=== PATIENT | male | born 1940 | race African-American/Black ===

== ENCOUNTER 2018-08-29 11:41 | Emergency (ER) | payer MEDICARE, BC ==
[~2018-08-29] VITALS: Ht 172.7 cm; Wt 82.0 kg
[~2018-08-29 11:41] MED LIST: ACET1TAB14 PO; HYDR-523 PO; LISI-196 PO; LOV40 SQ; TAMS-11 PO
[2018-08-29 12:09] VITALS: BP 133/79
[2018-08-29] MEDS ORDERED: GABAPENTIN (12:20)
== END 2018-08-29 13:50 | disposition left against medical advice (07) ==
LOC: ER 11:41
DX: R07.81 Pleurodynia (principal); Z53.21 Procedure and treatment not carried out due to patient leaving prior to being seen by health care provider